=== PATIENT | male | born 1960 | race Two or more races ===

== ENCOUNTER 2016-11-04 16:33 | Emergency (ER) | payer OTHER ==
[~2016-11-04] VITALS: Ht 167.6 cm; Wt 99.8 kg
[2016-11-04 16:41] VITALS: BP 148/90
[2016-11-04 19:36] LABS: Basophils # (auto) 0 uL; Basophils % (auto) 0.2 % (0.0-2.0); CONDITION AutoValidated; Eosinophils # (auto) 0 uL; Eosinophils % (auto) 0.3 % (0.0-7.0); Hematocrit 48.8 % (41.0-53.0); Hemoglobin 16.6 g/dL (13.5-17.5); Lymphocytes # (auto) 0.7 uL; Lymphocytes % (auto) 10.1 % (10.0-50.0); Mean Corpuscular Volume 96.8 fL (80.0-100.0); Mean Platelet Volume 9.4 fL (7.4-10.4); Monocytes # (auto) 0.3 uL; Monocytes % (auto) 4.8 % (0.0-12.0); Neutrophils # (auto) 5.7 uL; Neutrophils % (auto) 84.6 % (37.0-80.0); Platelet Count (auto) 195 10^3/uL (140-450); White Blood Cell 6.8 10^3/uL (4.4-10.8)
[2016-11-04 19:50] LABS: Albumin 3.9 g/dL (3.4-5.0); BUN/Creatinine Ratio 28.6; Bilirubin, Total 0.6 mg/dL (0.2-1.0); Calcium 8.8 mg/dL (8.5-10.1); Potassium 3.8 mmol/L (3.5-5.1); Total Protein 7.3 g/dL (6.4-8.2)
== END 2016-11-04 22:33 | disposition left against medical advice (07) ==
LOC: EDUNIT# 16:33 → ER 16:43
DX: R42 Dizziness and giddiness (principal); R00.2 Palpitations; Z53.21 Procedure and treatment not carried out due to patient leaving prior to being seen by health care provider
CPT/HCPCS: 36415; 80053; 85025; 93005